=== PATIENT | male | born 1990 | race Caucasian/White ===

== ENCOUNTER 2023-11-15 17:32 | Emergency (ER) | payer OTHER ==
[~2023-11-15] VITALS: Ht 180.3 cm; Wt 106.6 kg
[~2023-11-15 17:32] MED LIST: HYDACE5 PO
[2023-11-15 17:55] VITALS: BP 136/96
[2023-11-15] MEDS ORDERED: Cephalexin Monohydrate 500 MG Cap PO ONE (19:10)
[2023-11-15] MEDS ORDERED: CEPH500 PO (19:12)
== END 2023-11-15 19:25 | disposition home or self-care (01) ==
LOC: ER 17:32
DX: S61.243A Puncture wound with foreign body of left middle finger without damage to nail, initial encounter (principal); W45.8XXA Other foreign body or object entering through skin, initial encounter; Z88.8 Allergy status to other drugs, medicaments and biological substances; Z88.5 Allergy status to narcotic agent
CPT/HCPCS: 10120; 73140; 99283-25; A9270

== ENCOUNTER 2024-06-24 06:05 | Day surgery (SDC) | payer OTHER ==
[~2024-06-24] VITALS: Ht 180.3 cm; Wt 110.4 kg
[~2024-06-24 06:05] MED LIST changes: +CEPH500 PO; +Lactated Ringer's 1,000 ML IV ONE
[2024-06-24] MEDS ORDERED: Lactated Ringer's 1,000 ML IV ONE ×2 (06:30→09:20)
[2024-06-24] MEDS ORDERED: MULVITA PO (06:41)
[2024-06-24] MEDS ORDERED: Lidocaine 1%-Epineph 1:100000 20 ML MDV ONE (06:57)
[2024-06-24] MEDS ORDERED: CeFAZolin Sodium 2,000 MG VIAL ONE (07:01)
[2024-06-24] MEDS ORDERED: NS 50 ML IV ONE (07:01)
[2024-06-24] MEDS ORDERED: Tranexamic Acid 100 ML IV ONE (07:04)
[2024-06-24] MEDS ORDERED: FentaNYL Citrate 50 MCG/ML 2 ML Injection ONE ×2 (07:13→09:22)
[2024-06-24] MEDS ORDERED: propofoL 20 ML IV ONE ×2 (07:13)
--- NOTE | 2024-06-24 07:15 | NUR ---
06/24/24 0715 Alma Blankenship 1 MG OF EPI ADDED TO FIRST 3 BAGS OF LR FOR IRREGATION.
[2024-06-24] MEDS ORDERED: Dexamethasone Sod Phos 10 MG/ML 1ML VIAL ONE (07:16)
[2024-06-24] MEDS ORDERED: Ondansetron HCl 2 MG / ML 2ML Vial ONE (07:16)
[2024-06-24] MEDS ORDERED: EPINEPhrine HCl 1 MG/ML 1ML Amp XX ONE ×2 (07:39)
[2024-06-24] MEDS ORDERED: Bupivacaine 0.5% HCl 5 MG/ML 30MLVIAL INJ ONE (09:20)
[2024-06-24] MEDS ORDERED: HYDROmorphone HCl/Pf 1MG SYR ONE (10:21)
[2024-06-24] MEDS ORDERED: Ketorolac Tromethamine 30mg Vial ONE (10:22)
[2024-06-24 11:02] VITALS: BP 128/80
== END 2024-06-24 10:55 | disposition home or self-care (01) ==
LOC: ORSCSDS 06:05
PROVIDERS: Orthopaedic Surgery Sports Medicine
PROC: 0MQP4ZZ Repair Left Knee Bursa and Ligament, Percutaneous Endoscopic Approach (ICD-10-PCS; principal; 2024-06-24 07:30)
DX: S83.512A Sprain of anterior cruciate ligament of left knee, initial encounter (principal); S83.289A Other tear of lateral meniscus, current injury, unspecified knee, initial encounter; G47.33 Obstructive sleep apnea (adult) (pediatric); E66.9 Obesity, unspecified; Z68.33 Body mass index [BMI] 33.0-33.9, adult
CPT/HCPCS: C1713; J0171; J0690; J1100; J1171; J1885; J2405; J2704; J3010; J7120